=== PATIENT | female | born 1970 | race Caucasian/White ===

== ENCOUNTER 2019-01-03 15:19 | Emergency (ER) | payer OTHER ==
[~2019-01-03] VITALS: Ht 177.8 cm; Wt 69.0 kg
[2019-01-03 15:29] VITALS: BP 103/70
[2019-01-03] MEDS ORDERED: LIDOCAINE-MPF 1%, 5ML ONE (15:43)
[2019-01-03] MEDS ORDERED: PLEASE ENTER ALLERGIES MC SCH (16:00)
[2019-01-03] MEDS ORDERED: LIDOCAINE-MPF 1%, 5ML INFIL ONE (16:00)
== END 2019-01-03 16:26 ==
LOC: ED 16:20
DX: S61.215A Laceration without foreign body of left ring finger without damage to nail, initial encounter (principal); G89.11 Acute pain due to trauma; W26.0XXA Contact with knife, initial encounter; Y93.G3 Activity, cooking and baking; Y92.090 Kitchen in other non-institutional residence as the place of occurrence of the external cause; Y99.8 Other external cause status
CPT/HCPCS: 12001; 99283